=== PATIENT | male | born 1960 | race Two or more races ===

== ENCOUNTER 2017-05-24 20:41 | Emergency (ER) | payer SELFPAY | END 2017-05-24 22:32 | disposition home or self-care (01) | LOC: D.ER 20:41 | DX: S61.412A Laceration without foreign body of left hand, initial encounter (principal); W26.0XXA Contact with knife, initial encounter; Y93.89 Activity, other specified; Y92.029 Unspecified place in mobile home as the place of occurrence of the external cause ==